=== PATIENT | male | born 1975 | race Caucasian/White ===

== ENCOUNTER 2022-07-24 08:01 | Outpatient (CLI) | payer MEDICAID, SELFPAY | END 2022-07-24 08:02 | disposition home or self-care (01) | LOC: AMB 08-08 14:27 | PROVIDERS: Visit Provider Family Medicine | DX: I46.9 Cardiac arrest, cause unspecified (principal); R41.82 Altered mental status, unspecified | CPT/HCPCS: A0425; A0433 ==

== ENCOUNTER 2022-07-24 08:56 | Emergency (ER) | payer MEDICAID, SELFPAY ==
[2022-07-24] VITALS (9 sets, daily range): BP systolic 79–109; BP diastolic 40–65; PULSE 80–98; RESP 14–16; O2SAT 100
--- NOTE | 2022-07-24 08:59 | ED.NURSE ---
epi drip in jan is 'discontinued' but WAS started in ER @ [id number]
--- NOTE | 2022-07-24 08:59 | CRLHL7_ITS ---
For Patients: As a result of the Century Cures Act, medical imaging exams and procedure reports are released immediately into your electronic medical record. You may view this report before your referring provider. If you have questions, please contact your health care provider. Indication: Arrest unresponsive Technique: Portable chest Comparison: No comparison Findings: Left lateral chest is not imaged. Low lung volumes. Enlarged cardiac silhouette perihilar interstitial opacities probably reflecting pulmonary edema. Endotracheal tube at the level the kavin no recommend approximately 3 centimeters retraction. 1. Perihilar interstitial opacities probably related to pulmonary edema left lateral chest is not imaged. No pneumothorax. 2. Endotracheal tube at the level the kavin recommend approximately 3 cm retraction. Dictated by Kaia Lewis MD @ 07/24/2022 9:38:09 AM (Electronically Signed)
--- NOTE | 2022-07-24 09:00 | ED.GENADULT ---
HPI - General Adult General Time Seen by Provider: 09:00 Date Seen: 07/24/22 Chief complaint: Cardiac Arrest/CPR Stated complaint: unresponsive Source: patient Mode of arrival: EMS Limitations: altered mental status and physical limitation History of Present Illness HPI narrative: Patient is a 47-year-old male who was at his home, call came and that the patient was intoxicated and was laying on the ground, he was noted to have some rectal bleeding. He has had a history of alcoholism by family report to the paramedics, past family is not here presently. The patient had a subsequent bradycardic spell and a cardiac arrest, was in PA with no palpable pulse, received 4 rounds of epinephrine IV and an epi drip. He seemed to need the epi drip to maintain his blood pressure which would go down to the 50s and 60s without it. It is in the 80s now systolic. The patient was intubated has good end tidal, and good O2 sat. The patient the patient's history of prior to his ambulance assessment was unclear. No history of street drugs, but alcoholism as mention. Patient's blood pressure has been supported by an epi drip as mention, without the epi drip the drops down into the 70 range 60 range systolic. We are attempting to get O negative blood. He continues on IV fluid boluses Review of Systems Narrative: Unable to obtain 2nd to patient's medical condition Exam Narrative: Exam Narrative: Objective: Blood pressure is 80 to 90/60 Patient's breathing spontaneously, has a spontaneous pulse at about 90 He has some blood around the ET tube, good airway sounds bilaterally abdomen is slightly distended, no masses Peripheral perfusion he has good pulses, neurologically he has sluggish eye pupil reaction that are equal, not moving extremities. Patient was intubated in the field as mention. Patient had rectal bleeding as well at the residence. Second-line IV started, hemodynamic monitoring, RT consultation, epinephrine drip to continue, IV saline boluses. Tolbert catheter placed. Air care called and will make arrangements for transfer to tertiary care. Const: Vital Signs, click to edit/add: Vital Signs - 24 hr 07/24/22 08:59 Pulse Rate 80 Respiratory Rate 15 Pulse Oximetry 100 Course Vital Signs Vital signs: Initial Vital Signs Pulse Rate 80 07/24/22 08:59 Respiratory Rate 15 07/24/22 08:59 Pulse Oximetry 100 07/24/22 08:59 Vital Signs Pulse Rate 80 07/24/22 08:59 Respiratory Rate 15 07/24/22 08:59 Pulse Oximetry 100 07/24/22 08:59 Pulse Rate 80 07/24/22 08:59 Respiratory Rate 15 07/24/22 08:59 Pulse Oximetry 100 07/24/22 08:59 Medical Decision Making MDM Narrative Medical decision making narrative: Dr. Jeff Rae in the ICU abdomen frosting kindly accepts the patient in transfer. Patient is remaining hemodynamically stable, air ambulance is here, family has been informed by staff of his transfer. Given the proximity of the helicopter here now, we would do not have blood available at this time. Addendum: The patient's chest x-ray by my read show shows good ET tube placement, the left lung is cut off on the film, but no obvious pneumothorax on the visible portion of the film. Lab Data Labs: Lab Results 07/24/22 07/24/22 07/24/22 Range/Units 09:08 09:08 09:08 WBC Cancelled Corrected WBC Cancelled RBC Cancelled Hgb Cancelled Hct Cancelled MCV Cancelled MCH Cancelled MCHC Cancelled RDW Coeff of Narciso Cancelled Plt Count Cancelled Neut % (Auto) Cancelled Lymph % (Auto) Cancelled Coffee % (Auto) Cancelled Eos % (Auto) Cancelled Baso % (Auto) Cancelled Neut # (Auto) Cancelled Lymph # (Auto) Cancelled Coffee # (Auto) Cancelled Eos # (Auto) Cancelled Baso # (Auto) Cancelled Abs Immat Gran (auto) Cancelled Imm/Tot Granulo (auto) Cancelled Sodium 146 (135-149) mmol/L Potassium 3.3 L (3.6-5.1) mmol/L Chloride 115 H (96-114) mmol/L Carbon Dioxide 7 L* (20-32) mmol/L BUN 7 (5-24) mg/dL Creatinine 0.8 (0.5-1.5) mg/dL Estimated GFR 111 ml/min Glucose 150 H (60-115) mg/dL Lactate 19.0 H* (0.5-1.9) mmol/L Calcium 6.0 L (8.4-10.6) mg/dL Troponin I 0.05 H (0.01-0.04) ng/mL NT-Pro-B Natriuret Pep 251 H (0-125) PG/mL Urine Color (Yellow) Urine Appearance (Clear) Urine pH (5.0-8.5) Ur Specific Perry (1.000-1.030) Urine Protein (Negative) Urine Glucose (UA) (Negative) Urine Ketones (Negative) Urine Blood (Negative) Urine Nitrite (Negative) Urine Bilirubin (Negative) Urine Urobilinogen (0.2-1.0) Ur Leukocyte Esterase (Negative) Urine RBC (0-2) Urine WBC (0-5) Ur Squamous Epith Cells (None-Few) Amorphous Sediment (None) Other Sediment (None) Urine Bacteria (None) Urine Mucus (None) Urine Opiates Screen (Negative) Ur Oxycodone Screen (Negative) Urine Methadone Screen (Negative) Ur Propoxyphene Screen (Negative) Ur Barbiturates Screen (Negative) U Tricyclic Antidepress (Negative) Ur Phencyclidine Scrn (Negative) Ur Amphetamines Screen (Negative) U Methamphetamines Scrn (Negative) U Benzodiazepines Scrn (Negative) Urine Cocaine Screen (Negative) U Marijuana (THC) Screen (Negative) Ur Drug Screen Comment Ethyl Alcohol 0.12 H (0.01-0.03) % Blood Type Antibody Screen Crossmatch (AHG) 07/24/22 07/24/22 07/24/22 Range/Units 09:08 09:08 09:15 WBC Corrected WBC RBC Hgb Hct MCV MCH MCHC RDW Coeff of Narciso Plt Count Neut % (Auto) Lymph % (Auto) Coffee % (Auto) Eos % (Auto) Baso % (Auto) Neut # (Auto) Lymph # (Auto) Coffee # (Auto) Eos # (Auto) Baso # (Auto) Abs Immat Gran (auto) Imm/Tot Granulo (auto) Sodium (135-149) mmol/L Potassium (3.6-5.1) mmol/L Chloride (96-114) mmol/L Carbon Dioxide (20-32) mmol/L BUN (5-24) mg/dL Creatinine (0.5-1.5) mg/dL Estimated GFR ml/min Glucose (60-115) mg/dL Lactate (0.5-1.9) mmol/L Calcium (8.4-10.6) mg/dL Troponin I (0.01-0.04) ng/mL NT-Pro-B Natriuret Pep (0-125) PG/mL Urine Color Yellow (Yellow) Urine Appearance Cloudy A (Clear) Urine pH 6.0 (5.0-8.5) Ur Specific Perry >= 1.030 (1.000-1.030) Urine Protein 3+ A (Negative) Urine Glucose (UA) Negative (Negative) Urine Ketones 1+ A (Negative) Urine Blood 1+ A (Negative) Urine Nitrite Negative (Negative) Urine Bilirubin Negative (Negative) Urine Urobilinogen 4.0 (0.2-1.0) Ur Leukocyte Esterase Negative (Negative) Urine RBC 5-10 A (0-2) Urine WBC 10-25 A (0-5) Ur Squamous Epith Cells Moderate A (None-Few) Amorphous Sediment Many A (None) Other Sediment Few A (None) Urine Bacteria Many A (None) Urine Mucus Moderate A (None) Urine Opiates Screen Negative (Negative) Ur Oxycodone Screen Negative (Negative) Urine Methadone Screen Negative (Negative) Ur Propoxyphene Screen Negative (Negative) Ur Barbiturates Screen Negative (Negative) U Tricyclic Antidepress Negative (Negative) Ur Phencyclidine Scrn Negative (Negative) Ur Amphetamines Screen Negative (Negative) U Methamphetamines Scrn Negative (Negative) U Benzodiazepines Scrn Negative (Negative) Urine Cocaine Screen Negative (Negative) U Marijuana (THC) Screen Negative (Negative) Ur Drug Screen Comment See Note Ethyl Alcohol (0.01-0.03) % Blood Type O Positive Antibody Screen NEGATIVE Crossmatch (AHG) See Detail Critical Care Time Critical Care Time Total Critical Care Time in Minutes: 60 Discharge Plan Discharge Clinical Impression: GI (gastrointestinal bleed), Alcoholism, Cardiac arrest Condition: Critical Additional Instructions: Transfer to [facility] ICU, via air Care, patient is stable for transport, in critical condition Follow Up/Referrals: Provider,Not a Local [Primary Care Provider] - Stand Alone Forms: [employer]ore[employer] Info Instructions
[2022-07-24] MEDS: 0.9 % SODIUM CHLORIDE 1000 ml 1,000 ML 6000 ML IV (09:05)
--- NOTE | 2022-07-24 09:05 | ED.NURSE ---
LR in jan 'discontinued' but WAS admin/started
[2022-07-24 09:33] LABS: Appearance Urine Cloudy (Clear); Bilirubin Urine Negative (Negative); Blood Urine 1+ (Negative); Color Urine Yellow (Yellow); Glucose Urine Negative (Negative); Ketones Urine 1+ (Negative); Leukocyte Esterase Urine Negative (Negative); Nitrite Urine Negative (Negative); Protein Urine 3+ (Negative); Specific Gravity Urine >= 1.030 (1.000-1.030)
--- NOTE | 2022-07-24 09:35 | ED.NURSE ---
call from lab critical md abbie notified
[2022-07-24 09:50] LABS: Chloride* 115 mmol/L (96-114)
[2022-07-24 09:51] LABS: Potassium* 3.3 mmol/L (3.6-5.1); Sodium* 146 mmol/L (135-149)
[2022-07-24 09:53] LABS: Blood Urea Nitrogen* 7 mg/dL (5-24); Creatinine* 0.8 mg/dL (0.5-1.5); Estimated Glomerular Filt Rate 111 ml/min
[2022-07-24 09:54] LABS: Ethanol* 0.12 % (0.01-0.03); Glucose* 150 mg/dL (60-115)
[2022-07-24 10:03] LABS: NT Pro B Type NatriureticPept* 251 PG/mL (0-125)
[2022-07-24 10:06] LABS: Troponin I* 0.05 ng/mL (0.01-0.04)
[2022-07-24 10:08] LABS: Amphetamine Screen Urine Negative (Negative); Barbiturate Screen Urine Negative (Negative); Benzodiazepines Screen Urine Negative (Negative); Cannabinoid Screen Urine Negative (Negative); Cocaine Screen Urine Negative (Negative); Methadone Screen Urine Negative (Negative); Methamphetamines Screen Urine Negative (Negative); Opiate Screen Urine Negative (Negative); Oxycodone Screen Urine Negative (Negative); Phencyclidine Screen Urine Negative (Negative); Tricyclic Antidepressant Urine Negative (Negative)
[2022-07-24 10:15] LABS: Carbon Dioxide* 7 mmol/L (20-32)
--- NOTE | 2022-07-24 10:17 | RESP.RT ---
Patient MARY arrived EMS with 7.0 ETT secured at 23.5 cm at teeth, Bilateral breath sounds present, equal, good chest rise. Chest X-Ray shown ETT low, but above kavin. Continue on EMS ventilator, FiO2 100%, ASV Rate 15/minute, PEEP 7 cm pressure, vt 440 ml, MV 6.6 L. Patient orally suction intermittently for milly blood. Patient transferred by [facility] to larger facility.
--- NOTE | 2022-07-24 10:17 | ED.NURSE ---
call from lab CO2 7 dr bourgeois updated
[2022-07-24 10:36] LABS: Squamous Epithelial Cell Urine Moderate (None-Few)
[2022-07-24 10:37] LABS: Amorphous Sediment Urine Many; Bacteria Urine Many; Mucus Urine Moderate; Other Sediment Urine Few
== END 2022-07-24 10:00 | disposition home or self-care (01) ==
PROVIDERS: Emergency Provider Family Medicine
DX: I46.9 Cardiac arrest, cause unspecified (principal); K92.2 Gastrointestinal hemorrhage, unspecified; F10.20 Alcohol dependence, uncomplicated
CPT/HCPCS: 36415; 51702; 71045; 80048; 80306; 81001; 82077; 83605; 83880; 84484; 85025; 86850; 86900; 86901; 86922; 87086; 93005; 99285; 99291; J7030; P9016